=== PATIENT | male | born 1985 | race Caucasian/White ===

== ENCOUNTER 2019-08-04 21:50 | Emergency (ER) | payer BC, OTHER ==
[2019-08-04 21:56] VITALS: BP 139/76; PULSE 82; TEMP 100
--- NOTE | 2019-08-04 22:05 | PDOC ---
Rapid Medical Evaluation Chief Complaint: Respiratory Time Seen by Provider: 08/04/19 21:52 Medical Evaluation: Allergies Allergy/AdvReac Type Severity Reaction Status Date / Time No Known Allergies Allergy Verified 05/31/15 22:47 Vital Signs Temp Pulse Resp BP Pulse Ox 100.0 F H 82 20 139/76 100 08/04/19 21:55 08/04/19 21:55 08/04/19 21:55 08/04/19 21:55 08/04/19 21:55 08/04/19 22:00 I have performed a brief in-person evaluation of this patient. The patient presents with a chief complaint of: no Sig Pmhx present with complains of 4 episodes of cough, fever and body aches since today. 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 Denies known sick contact, recent travel or contact with anyone with positive covid. Patient report has fever of 102F at home earlier today. Patient has not taken anything for symptoms Pertinent physical exam findings: A&O x 3 in NAD. low grade temp of 100.0F. lungs CTAB . normal cardio exam A/P: 34yo with no Pmhx with 24hrs h/o URI Patient in NAD and unremarkable exam symptoms likely viral URI and stable for outpatient conservative management on Tessalon perles prn for cough, Tylenol prn for fever and Increase fluid intake with strict quarantine instructions Discharge Disposition - Diagnosis URI, acute - Discharge Dispostion Disposition: HOME Condition at time of disposition: Stable Decision to Admit order: No - Prescriptions Prescriptions: Benzonatate [Tessalon Pearls -] 100 mg PO Q8H PRN #16 capsule PRN Reason: Cough - Referrals - Patient Instructions Printed Discharge Instructions: [facility]-Coronavirus Instructions Additional Instructions: Your symptoms is likely viral infection. Take prescribed medications as needed for cough, Take Tylenol as needed for fever. Increase fluid intake. Wear mask at all times and refrain from public gathering until no fever for at least 24 hours - Post Discharge Activity Work/School Note: Back to Work
== END 2019-08-04 22:11 | disposition home or self-care (01) ==
LOC: JER 21:50
DX: J06.9 Acute upper respiratory infection, unspecified (principal); B97.89 Other viral agents as the cause of diseases classified elsewhere
CPT/HCPCS: 99282-25